=== PATIENT | male | born 1955 | race Caucasian/White ===

== ENCOUNTER 2019-12-09 17:20 | Outpatient (CLI) | payer OTHER | END 2019-12-09 17:21 | disposition home or self-care (01) | LOC: COV 17:20 | PROVIDERS: ATTEND Family Medicine | DX: R50.9 Fever, unspecified (principal) | CPT/HCPCS: 81599 ==

== ENCOUNTER 2023-11-27 09:02 | Outpatient (CLI) | payer MEDICARE ==
--- NOTE | 2023-11-27 15:40 | XRAY Report ---
PROCEDURE: Chest 2V INDICATIONS: CHRONIC COUGH, COPD TECHNIQUE: 2 views of the chest were acquired. COMPARISON: None. FINDINGS: Surgical changes and devices: None. Lungs and pleura: No pleural effusions or pneumothorax. Lungs are clear. Mediastinum: Mediastinal contours appear normal. Heart size is normal. Bones and chest wall: No suspicious bony lesions. Overlying soft tissues appear unremarkable. IMPRESSION: No acute cardiopulmonary process. Reviewed by: Isauro Dickens MD on 11/27/2023 3:38 PM PDT Approved by: Isauro Dickens MD on 11/27/2023 3:38 PM PDT Station ID: [id number]
== END 2023-11-27 09:03 | disposition home or self-care (01) ==
LOC: DI 09:02
PROVIDERS: ATTEND Internal Medicine
DX: R05.3 Chronic cough (principal); J44.9 Chronic obstructive pulmonary disease, unspecified; I10 Essential (primary) hypertension